=== PATIENT | female | born 1980 | race Two or more races ===

== ENCOUNTER 2017-02-03 17:43 | Emergency (ER) | payer OTHER ==
[2017-02-03 17:47] VITALS: BP 121/86; PULSE 95; RESP 15; TEMP 98.8; O2SAT 96
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
== END 2017-02-03 18:20 | disposition home or self-care (01) ==
DX: Z77.21 Contact with and (suspected) exposure to potentially hazardous body fluids (principal)

== ENCOUNTER → 2017-05-11 | Outpatient (CLI) | payer OTHER | LOC: CIMAGING 16:40 | PROVIDERS: ATTEND Family Medicine | DX: S93.402A Sprain of unspecified ligament of left ankle, initial encounter (principal) | CPT/HCPCS: 73610-PO ==